=== PATIENT | male | born 1960 | race Caucasian/White ===

== ENCOUNTER 2021-01-05 00:07 | Observation (INO) ==
[2021-01-05] MEDS ORDERED: Naloxone 0.4 MG/ML INJ IVP PRN (03:46)
[2021-01-05] MEDS ORDERED: Melatonin 3 MG TABLET PO PRN (03:46)
[2021-01-05] MEDS ORDERED: Ondansetron 4 MG/2 ML VIAL IVP PRN (03:46)
[2021-01-05] MEDS ORDERED: *HR* Heparin 5,000 UNIT/ML VIAL IVP PRN ×2 (04:11)
[2021-01-05] MEDS ORDERED: Heparin 25,000UNIT/250ML 1/2NS 25,000 UNIT/250 ML IV.SOLN IVC SCH (04:15)
[2021-01-05 04:44] LABS: Basophils % 0.5 %; Eosinophils # 0.2 K/mcL (0.0-0.6); Eosinophils % 2.7 %; Hematocrit 38.4 % (37.5-50.1); Hemoglobin 13.2 g/dL (12.9-16.9); Immature Granulocytes % 0.4 % (0-4); Lymphocytes # 1.7 K/mcL (0.6-4.6); Lymphocytes % 30.4 %; Mean Corpuscular HGB Conc 34.4 g/dL (31.6-35.5); Mean Corpuscular Hemoglobin 29.7 pg (28.0-33.3); Mean Corpuscular Volume 86.3 fL (83.0-100.0); Mean Platelet Volume 11.2 fL (9.4-12.4); Monocytes # 0.5 K/mcL (0.0-1.3); Monocytes % 8.9 %; Neutrophils # 3.1 K/mcL (1.6-8.9); Platelet Count 163 K/mcL (140-400); Red Blood Count 4.45 M/mcL (4.19-5.50); Red Cell Distribution Width 12.4 % (11.5-14.5); Segmented Neutrophils % 57.1 %; White Blood Count 5.5 K/mcL (4.3-11.1)
[2021-01-05 04:51] LABS: Heparin anti-factor XA UFH 0.1 IU/mL (0.30-0.70); INR 1.1; Prothrombin Time 12.6 Seconds (9.4-12.1)
[2021-01-05 05:03] LABS: Alanine Aminotransferase 28 Units/L (7-52); Albumin 4.1 g/dL (3.5-5.7); Alkaline Phosphatase 41 Units/L (34-104); Aspartate Amino Transferase 22 Units/L (13-39); BUN/Creatinine Ratio 29 (6-26); Bilirubin,Total 0.3 mg/dL (0.3-1.0); Blood Urea Nitrogen 23 mg/dL (6-20); Calcium 9.4 mg/dL (8.6-10.3); Carbon Dioxide 29 mEq/L (23-29); Chloride 103 mEq/L (98-107); Glucose 133 mg/dL (70-105); Magnesium 1.9 mg/dL (1.6-2.6); Osmolality,Calculated 292 (280-300); Phosphorous 3.5 mg/dL (2.7-4.5); Potassium 3.6 mEq/L (3.5-5.1); Sodium 138 mEq/L (136-145); Total Protein 6.4 g/dL (6.4-8.9); eGFR For African Americans > 60 (> 60); eGFR For Non-African Americans > 60 (> 60)
[2021-01-05 05:04] LABS: Albumin/Globulin Ratio 1.8 (1.1-2.2); Globulin 2.3 g/dL (2.4-3.5); Troponin I < 0.03 ng/mL (< 0.04)
[2021-01-05] MEDS ORDERED: Dextrose Gel 15 GM/37.5 ML TUBE PO PRN ×2 (07:08)
[2021-01-05] MEDS ORDERED: *HR* Dextrose 50 % in Water (Vial) 50 ML VIAL IVP PRN (07:08)
[2021-01-05] MEDS ORDERED: D5% in Water 1,000 ML IVC PRN (07:08)
[2021-01-05] MEDS ORDERED: Regadenoson 0.4 MG/5 ML SYRINGE IVP ONE (09:50)
[2021-01-05] MEDS: Acetaminophen 325 MG TABLET PO PRN ×2 (10:22→16:08)
[2021-01-05] MEDS ORDERED: Insulin LISPRO 300 UNITS/3 ML VIAL SUBQ SCH (12:00)
[2021-01-05] MEDS: *HR* Heparin 5,000 UNIT/ML VIAL SQ SCH ×2 (13:21→21:07)
[2021-01-05] MEDS: hydroCHLOROthiazide 25 MG TABLET PO SCH (13:22)
[2021-01-05] MEDS ORDERED: polyethylene glycoL 3350 17 GM POWD.PACK PO PRN (13:25)
[2021-01-05] MEDS: Insulin LISPRO 300 UNITS/3 ML VIAL SUBQ SCH (16:07)
[2021-01-05] MEDS: *HR* Metoprolol 5 MG/5 ML VIAL IVP PRN (21:49)
[2021-01-06] MEDS: hydroCHLOROthiazide 25 MG TABLET PO SCH (05:42)
[2021-01-06] MEDS: *HR* Heparin 5,000 UNIT/ML VIAL SQ SCH ×2 (05:42→12:55)
[2021-01-06] MEDS: Acetaminophen 325 MG TABLET PO PRN ×2 (05:45→12:55)
[2021-01-06] MEDS: Insulin LISPRO 300 UNITS/3 ML VIAL SUBQ SCH ×3 (07:02→15:50)
[2021-01-06] MEDS: *HR* Metoprolol 5 MG/5 ML VIAL IVP PRN (08:59)
[2021-01-06] MEDS ORDERED: Metoprolol XL (24 HR) Succ 25 MG TAB.ER.24H PO SCH (09:00)
[2021-01-06] MEDS: Regadenoson 0.4 MG/5 ML SYRINGE IVP ONE ×2 (11:13→11:58)
[2021-01-06 15:46] VITALS: BP 157/103
[2021-01-06] MEDS ORDERED: carvediloL 6.25 MG TABLET PO SCH (17:00)
== END 2021-01-06 16:58 | disposition home or self-care (01) ==
LOC: 2ANU → SUATTDRO 03:02
PROVIDERS: ADMIT Student in an Organized Health Care Education/Training Program; ATTEND Internal Medicine